=== PATIENT | male | born 1990 | race Caucasian/White ===

== ENCOUNTER 2021-08-18 14:23 | Emergency (ER) | payer OTHER ==
[~2021-08-18] VITALS: Ht 193 cm; Wt 79.5 kg
[2021-08-18 14:28] VITALS: BP 134/94
== END 2021-08-18 20:12 | disposition left against medical advice (07) ==
LOC: ER 14:23
DX: Z53.21 Procedure and treatment not carried out due to patient leaving prior to being seen by health care provider (principal)

== ENCOUNTER → 2021-09-05 | Emergency (ER) | payer OTHER ==
[~2021-09-05] VITALS: Ht 193 cm; Wt 81.8 kg
[~2021-09-05] MED LIST: normal saline 1000ML IV soln IVB ONE
[2021-09-05 13:10] VITALS: BP 116/89
== END | disposition left against medical advice (07) ==
LOC: ER 12:53
DX: F10.129 Alcohol abuse with intoxication, unspecified (principal); Y90.9 Presence of alcohol in blood, level not specified
CPT/HCPCS: 99283